=== PATIENT | male | born 1940 | race Caucasian/White ===

== ENCOUNTER → 2023-11-26 | Day surgery (SDC) | payer OTHER ==
[2023-11-25 11:45] VITALS: BMI 25.0
== END ==
LOC: SDC 06:14
PROVIDERS: ATTEND Internal Medicine Cardiovascular Disease
PROC: 02H63JZ Insertion of Pacemaker Lead into Right Atrium, Percutaneous Approach (ICD-10-PCS; principal; 2023-11-26)
PROC: 02HK3JZ Insertion of Pacemaker Lead into Right Ventricle, Percutaneous Approach (ICD-10-PCS; principal; 2023-11-26)
PROC: 0JH606Z Insertion of Pacemaker, Dual Chamber into Chest Subcutaneous Tissue and Fascia, Open Approach (ICD-10-PCS; principal; 2023-11-26)
DX: I44.2 Atrioventricular block, complete (principal); I48.3 Typical atrial flutter; I48.4 Atypical atrial flutter; I11.0 Hypertensive heart disease with heart failure; I50.42 Chronic combined systolic (congestive) and diastolic (congestive) heart failure; I42.8 Other cardiomyopathies; Z79.899 Other long term (current) drug therapy; Z79.01 Long term (current) use of anticoagulants; Z98.890 Other specified postprocedural states; Z92.89 Personal history of other medical treatment
CPT/HCPCS: 33208; 71045; 93005; C1769; C1785; C1894; C1898; J0690; J1580; J2405; J2704; J3010; J3370; Q9967; S0028